=== PATIENT | female | born 2000 | race Caucasian/White ===

== ENCOUNTER 2018-07-15 23:36 | Emergency (ER) | payer MEDICAID ==
[~2018-07-15] VITALS: Ht 121.9 cm; Wt 52.3 kg
[2018-07-15 23:37] VITALS: Ht 121.9 cm; Wt 52.3 kg
[2018-07-15] MEDS ORDERED: morphine 2 MG INJ IV STA (23:56)
[2018-07-15] MEDS ORDERED: SOD CHLORIDE 0.9% 1,000 ML IV STA (23:56)
[2018-07-15] MEDS ORDERED: FAMOTIDINE 20 MG INJ IV STA (23:56)
[2018-07-15] MEDS ORDERED: ONDANSETRON 4 MG INJ IV STA (23:56)
--- NOTE | 2018-07-15 23:57 | ERD ---
ER Documentation Chief Complaint Chief Complaint abdominal pain x 3 days RLQ; vomiting; denies HPI 18-year-old female, previously healthy, presents to the emergency department, complaining of 3 days with right lower quadrant abdominal pain, associated with nausea and 2 episodes of vomiting. The patient denies fever, no chills, no rashes, no diarrhea or constipation, no dysuria, however, the patient reports increased urinary frequency. ROS All systems reviewed and are negative except as per history of present illness. Medications Home Meds Active Scripts Acetaminophen* (Tylenol*) 325 Mg Tablet, 2 TAB PO Q6 PRN for PAIN AND OR ELEVATED TEMP, #20 TAB Prov:NOELLE WILLARD MD 07/16/18 Ibuprofen* (Motrin*) 400 Mg Tab, 400 MG PO Q6H PRN for PAIN AND OR ELEVATED TEMP, #30 TAB Prov:NOELLE WILLARD MD 07/16/18 Ciprofloxacin Hcl* (Ciprofloxacin Hcl*) 250 Mg Tablet, 250 MG PO BID, #10 TAB Prov:NOELLE WILLARD MD 07/16/18 Allergies Allergies: Coded Allergies: No Known Allergy (Unverified , 07/15/18) PMhx/Soc Medical and Surgical Hx: pt denies Medical Hx, pt denies Surgical Hx FmHx Family History: No diabetes, No coronary disease Physical Exam Vitals Vital Signs Date Temp Pulse Resp B/P (MAP) Pulse Ox O2 O2 Flow FiO2 Time Delivery Rate 07/15/18 99.2 74 18 121/57 99 23:37 (78) Physical Exam Const: No acute distress Head: Atraumatic Eyes: Normal Conjunctiva ENT: Normal External Ears, Nose and Mouth. Neck: Full range of motion. No meningismus. Resp: Clear to auscultation bilaterally Cardio: Regular rate and rhythm, no murmurs Abd: Soft, diffuse tenderness in the right lower quadrant to deep palpation, no peritoneal signs. Normal bowel sounds Skin: No petechiae or rashes Back: No midline or flank tenderness Ext: No cyanosis, or edema Neur: Awake and alert Psych: Normal Mood and Affect Result Diagram: 07/16/18 0009 07/16/188 Results 24 hrs Laboratory Tests Test 07/16/18 00:07 07/16/18 00:09 POC Beta HCG, Qualitative NEGATIVE White Blood Count 6.9 10^3/ul Red Blood Count 4.96 10^6/ul Hemoglobin 13.0 g/dl Hematocrit 41.2 % Mean Corpuscular Volume 83.1 fl Mean Corpuscular Hemoglobin 26.2 pg Mean Corpuscular Hemoglobin Concent 31.6 g/dl Red Cell Distribution Width 13.6 % Platelet Count 278 10^3/UL Mean Platelet Volume 11.0 fl Immature Granulocytes % 0.100 % Neutrophils % 55.1 % Lymphocytes % 31.8 % Monocytes % 10.2 % Eosinophils % 1.9 % Basophils % 0.9 % Nucleated Red Blood Cells % 0.0 /100WBC Immature Granulocytes # 0.010 10^3/ul Neutrophils # 3.8 10^3/ul Lymphocytes # 2.2 10^3/ul Monocytes # 0.7 10^3/ul Eosinophils # 0.1 10^3/ul Basophils # 0.1 10^3/ul Nucleated Red Blood Cells # 0.0 10^3/ul Activated Partial Thromboplast Time 26.3 Sec Urine Color COLORLESS Urine Clarity CLEAR Urine pH 7.0 Urine Specific [place] 1.002 Urine Ketones NEGATIVE mg/dL Urine Nitrite NEGATIVE mg/dL Urine Bilirubin NEGATIVE mg/dL Urine Urobilinogen NEGATIVE mg/dL Urine Leukocyte Esterase TRACE [place]/ul Urine Microscopic RBC 9 /HPF Urine Microscopic WBC 14 /HPF Urine Squamous Epithelial Cells FEW /HPF Urine Hemoglobin 1+ mg/dL Urine Glucose NEGATIVE mg/dL Urine Total Protein NEGATIVE mg/dl Sodium Level 142 mmol/L Potassium Level 4.4 mmol/L Chloride Level 103 mmol/L Carbon Dioxide Level 29 mmol/L Anion Gap 10 Blood Urea Nitrogen 10 mg/dl Creatinine 0.53 mg/dl Est Glomerular Filtrat Rate mL/min > 60 mL/min Glucose Level 90 mg/dl Calcium Level 9.9 mg/dl Total Bilirubin 0.4 mg/dl Direct Bilirubin 0.00 mg/dl Indirect Bilirubin 0.4 mg/dl Aspartate Amino Transf (AST/SGOT) 34 IU/L Alanine Aminotransferase (ALT/SGPT) 24 IU/L Alkaline Phosphatase 87 IU/L Total Protein 8.5 g/dl Albumin 5.0 g/dl Globulin 3.50 g/dl Albumin/Globulin Ratio 1.42 Lipase 69 U/L Current Medications Medications Dose Sig/Tess Start Time Status Last (Trade) Ordered Route PRN Stop Time Admin Dose Reason Admin Sodium 1,000 ml @ Q1H STAT 4/28/19 DC 07/16/18 Chloride 1,000 mls/hr IV 23:56 00:12 07/16/18 00:55 Morphine 2 mg ONCE STAT 07/15/18 DC 07/16/18 Sulfate IV 23:56 00:15 (morphine) 07/16/18 00:01 Ondansetron 4 mg ONCE STAT 07/15/18 DC 07/16/18 HCl (Zofran IV 23:56 00:15 Inj) 07/16/18 00:01 Famotidine 20 mg ONCE STAT 07/15/18 DC 07/16/18 (Pepcid Iv) IV 23:56 00:15 07/16/18 00:01 Ceftriaxone 50 ml @ ONCE ONCE 07/16/18 07/16/18 Sodium 100 mls/hr IVPB 01:30 01:26 07/16/18 01:59 Procedures/MDM Differential diagnosis include but not limited to: UTI, colitis, gastroenteritis, kidney stones, irritable bowel syndrome, inflammatory bowel syndrome, malabsorption syndrome, cholelithiasis, food intolerance, medication side effect, pancreatitis, diverticulitis, bowel obstruction. Low suspicion for acute abdomen Physical examination and clinical presentation consistent most likely with urinary tract infection. During the ED course the patient remained stable, no new complaints. The patient presented significant improvement of her symptoms after treatment in the emergency department. Results and clinical impression discussed with patient who agrees with management. The patient is stable to be treated outpatient and will be discharged home, some side effects of prescribed medications (headache, rash, nausea, vomiting, diarrhea, drowsiness, habituation, bleeding, hypertension, interactions with other medications) were reviewed. The patient was instructed to follow up with the primary care provider in the next 48h. If symptoms persist, worsen or new symptoms develop, then patient s hould return to the ED immediately. Instructions explained and given directly by me to the patient with acknowledgment and demonstrated understanding. Disclaimer: Inadvertent spelling and grammatical errors are likely due to EHR/dictation software use and do not reflect on the overall quality of patient care. Also, please note that the electronic time recorded on this note does not necessarily reflect the actual time of the patient encounter. Departure Diagnosis: Primary Impression: UTI (urinary tract infection) Condition: Stable Additional Instructions: Thank you very much for allowing us to participate in your care. Your health and safety is our top priority at [facility]. The evaluation in the emergency department has been done to rule out an acute emergency, therefore, chronic conditions like malignancy or other diseases have not been evaluated; therefore, you need to follow up with a primary care provider in the next 48h. If symptoms persist, worsen or new symptoms develop, then patient should return to the ED immediately. Call your primary care doctor TOMORROW for an appointment during the next 2-4 days and bring all the information provided. Have prescriptions filled and follow precisely the directions on the label. If the symptoms get worse and your provider is unavailable, return to the Emergency Department immediately. NOELLE WILLARD MD Jul 15, 2018 23:57
[2018-07-16] MEDS ORDERED: CEFTRIAXONE 1 GM/50 ML (PMX) 50 ML IVPB ONE (01:30)
[2018-07-16] MEDS ORDERED: CIPR-193 PO (01:44)
[2018-07-16] MEDS ORDERED: ACET325T33 PO (01:44)
[2018-07-16] MEDS ORDERED: IBUP-1561 PO (01:44)
[2018-07-16 02:00] VITALS: BP 99/56; PULSE 60; RESP 18
== END 2018-07-16 02:10 | disposition home or self-care (01) ==
LOC: FTE 23:36
DX: N39.0 Urinary tract infection, site not specified (principal)
CPT/HCPCS: 74176; 80053; 81001; 81025; 83690; 85025; 85730; J0696; J2270; J2405; J7030; Z7610; 36415; 96361; 96365; 96375